=== PATIENT | male | born 1970 | race Two or more races ===

== ENCOUNTER 2019-07-13 16:37 | Inpatient (IN) | payer OTHER ==
[~2019-07-13] VITALS: Ht 175.3 cm; Wt 58.2 kg
[2019-07-13 17:28] LABS: BASOPHILS % (AUTO) 0.6 % (0.0-2.0); EOSINOPHILS % (AUTO) 0.6 % (1.0-6.0); HEMATOCRIT 45.4 % (41-53); HEMOGLOBIN 15.2 g/dL (13.5-17.5); LYMPHOCYTES # (AUTO) 1.6 K/uL (1.0-4.8); LYMPHOCYTES % (AUTO) 20.8 % (22.0-44.0); MEAN CORPUSCULAR HEMOGLOBIN 30.1 pg (26.0-34.0); MEAN CORPUSCULAR HGB CONC 33.4 G/dL (31.0-37.0); MEAN CORPUSCULAR VOLUME 90 fL (80-100); MONOCYTES # (AUTO) 0.8 K/uL (0.1-1.0); MONOCYTES % (AUTO) 10.1 % (2.0-9.0); NEUTROPHILS # (AUTO) 5.1 K/uL (1.8-7.7); NEUTROPHILS % (AUTO) 67.9 % (40.0-70.0); PLATELET COUNT (AUTO) 254 K/uL (150-450); RED BLOOD CELL COUNT(AUTO) 5.05 MIL/uL (4.50-5.90); RED CELL DISTRIBUTION WIDTH 13.7 % (11.5-14.5)
[2019-07-13 17:35] LABS: ANION GAP 6 mmol/L (8-16); CALCIUM, TOTAL 9.3 mg/dL (8.8-10.5); CARBON DIOXIDE 31 mmol/L (22-29); CHLORIDE 103 mmol/L (98-107); CREATININE 0.95 mg/dL (0.60-1.30); GLOMERULAR FILTR. RATE CALC > 60 mL/min (>60); GLUCOSE,RANDOM 82 mg/dL (70-110); POTASSIUM 4.6 mmol/L (3.5-5.1); SODIUM SERUM 140 mmol/L (136-145); UREA NITROGEN, BLOOD 17 mg/dL (7-18)
[2019-07-13 17:40] LABS: ALANINE AMINOTRANSFERASE 35 U/L (12-78); ALBUMIN 3.8 g/dL (3.4-5.0); ALKALINE PHOSPHATASE 66 U/L (46-116); ASPARTATE AMINOTRANSFERASE 23 U/L (15-37); BILIRUBIN,TOTAL 0.2 mg/dL (0.1-1.0); TOTAL PROTEIN, SERUM 7.9 g/dL (6.4-8.2)
[2019-07-13 19:38] VITALS: BP 110/64
[2019-07-13 19:59] LABS: AMPHET/METH SCREEN,URINE POSITIVE (NEGATIVE); BARBITURATE SCREEN, URINE NEGATIVE (NEGATIVE); BENZODIAZEPINES SCREEN,URINE NEGATIVE (NEGATIVE); CANNABINOID SCREEN,URINE POSITIVE (NEGATIVE); COCAINE SCREEN,URINE NEGATIVE (NEGATIVE); METHADONE SCREEN, URINE NEGATIVE (NEGATIVE); OPIATE SCREEN,URINE NEGATIVE (NEGATIVE)
[2019-07-13 20:00] LABS: PHENCYCLIDINE SCREEN,URINE NEGATIVE (NEGATIVE)
[2019-07-13] MEDS ORDERED: LOPERAMIDE HCL 2 MG CAPSULE PO PRN (20:30)
[2019-07-13] MEDS ORDERED: ACETAMINOPHEN/CODEINE 300-15 MG TABLET PO PRN (20:30)
[2019-07-13] MEDS ORDERED: DICYCLOMINE HCL 10 MG CAPSULE PO PRN (20:30)
[2019-07-13] MEDS ORDERED: METOCLOPRAMIDE HCL 5 MG/ML 2 ML VIAL IVP PRN (20:30)
[2019-07-13] MEDS ORDERED: MAGNESIUM SULFATE 2 GM, MVI, ADULT NO.1 WITH VIT K 10 ML, THIAMINE HCL 100 MG, FOLIC AC... IV ONE ×5 (21:00)
[2019-07-13] MEDS: TEMAZEPAM 15 MG CAPSULE PO SCH (21:40)
[2019-07-13 23:44] VITALS: BP 83/54
[2019-07-14 00:26] VITALS: BP 97/61
[2019-07-14 05:02] VITALS: BP 120/70
[2019-07-14] MEDS: LORazepam 2 MG/ML VIAL IVP PRN (06:39)
[2019-07-14 07:35] VITALS: BP 109/71
[2019-07-14 15:38] VITALS: BP 95/62
[2019-07-14 20:23] VITALS: BP 111/57
[2019-07-14] MEDS: TEMAZEPAM 15 MG CAPSULE PO SCH (21:24)
[2019-07-15 00:45] VITALS: BP 98/71
[2019-07-15 04:00] VITALS: BP 117/65
[2019-07-15 07:50] VITALS: BP 104/61
[2019-07-15 15:27] VITALS: BP 93/49
[2019-07-15 20:04] VITALS: BP 107/47
[2019-07-15] MEDS: TEMAZEPAM 15 MG CAPSULE PO SCH (20:29)
[2019-07-16 04:45] VITALS: BP 93/52
[2019-07-16 07:49] VITALS: BP 106/70
[2019-07-16 15:39] VITALS: BP 111/65
[2019-07-16] MEDS: LORazepam 2 MG/ML VIAL IVP PRN (16:53)
[2019-07-16] MEDS: LORazepam 1 MG TABLET PO PRN (17:21)
[2019-07-16 19:15] VITALS: BP 109/68
[2019-07-16] MEDS: TEMAZEPAM 15 MG CAPSULE PO SCH (20:20)
[2019-07-16 23:30] VITALS: BP 131/71
[2019-07-17 04:46] VITALS: BP 105/78
[2019-07-17 07:28] VITALS: BP 122/79
[2019-07-17 15:39] VITALS: BP 101/60
[2019-07-17] MEDS: LORazepam 1 MG TABLET PO PRN (16:50)
[2019-07-17] MEDS: TEMAZEPAM 15 MG CAPSULE PO SCH (20:46)
[2019-07-18] MEDS: LORazepam 1 MG TABLET PO PRN (07:58)
[2019-07-18 08:03] VITALS: BP 114/74
[2019-07-18] MEDS ORDERED: FOLIC ACID 1 MG TABLET PO SCH (09:00)
[2019-07-18] MEDS ORDERED: MULTIVITAMINS WITH MINERALS, THERAPEUTIC TABLET PO SCH (09:00)
[2019-07-18] MEDS ORDERED: THIAMINE HCL 100 MG TABLET PO SCH (09:00)
== END 2019-07-18 13:15 | DRG 897 ==
LOC: EMS 16:42 → 6S 18:09
PROVIDERS: ADMIT Internal Medicine; ATTEND Internal Medicine
PROC: HZ2ZZZZ Detoxification Services for Substance Abuse Treatment (ICD-10-PCS; principal; 2019-07-13)
DX: F10.10 Alcohol abuse, uncomplicated (principal); F12.90 Cannabis use, unspecified, uncomplicated; F17.210 Nicotine dependence, cigarettes, uncomplicated; E78.00 Pure hypercholesterolemia, unspecified; F41.9 Anxiety disorder, unspecified; F15.10 Other stimulant abuse, uncomplicated; E78.5 Hyperlipidemia, unspecified
CPT/HCPCS: G0480; J2060; J3411; J3475; J3490; J7030